=== PATIENT | male | born 1965 | race Caucasian/White ===

== ENCOUNTER 2019-11-21 10:32 | Outpatient (CLI) | payer OTHER, MEDICAID, SELFPAY ==
--- NOTE | ~2019-11-21 | XR_ITS ---
XR_[id number]_CR 11/21/2019 11:24 Indication: Neck stiffness with pain. Procedure: 4 view cervical spine Comparison: No prior studies for comparison. Findings: Normal cervical alignment. There is disc narrowing at C5-6, C6-7 and C7-T1. No prevertebral soft tissue abnormality. Odontoid process within normal limits. Lateral masses normally aligned. The re are carotid atherosclerotic changes. There is moderate multilevel facet and uncinate hypertrophy. Lung apices are normal. Impression: 1: Moderate cervical spondylosis. 2: Carotid atherosclerosis. Consider correlation with ultrasound. Reviewed, dictated and finalized at location A. TH ASSOCIATE Impression: 1: Moderate cervical spondylosis. 2: Carotid atherosclerosis. Consider correlation with ultrasound.
--- NOTE | ~2019-11-21 | XR_ITS ---
XR shoulder RT min 2V 11/21/2019 11:25 Indication: Right shoulder pain Procedure: 5 views right shoulder Comparison: No prior studies for comparison. Findings: There are degenerative changes of the acromioclavicular joint. No fracture or traumatic mal alignment. Surrounding osseous structures and soft tissues are unremarkable. No foreign bodies. Impression: 1: Acromioclavicular joint osteoarthritis. Reviewed, dictated and finalized at location A. L PARALEGAL Impression: 1: Acromioclavicular joint osteoarthritis.
--- NOTE | ~2019-11-21 | XR_ITS ---
XR lumbar spine 2-3V 11/21/2019 11:24 Indication: Low back pain Procedure: 4 views lumbar spine Comparison: No prior studies for comparison. Findings: There is disc narrowing at L4-5 and L5-S1. There are facet hypertrophic changes of the mid and lower lumbar spine. There is grade 1 degenerative spondylolisthesis at L4-5. No acute fracture or traumatic malalignment. There is minimal dextrocurvature of the lumbar spine. Pedicles intact. Impression: 1: Moderate lumbar spondylosis with grade 1 degenerative spondylolisthesis at L4-5. Reviewed, dictated and finalized at location A. BOARD DEVELOPER Impression: 1: Moderate lumbar spondylosis with grade 1 degenerative spondylolisthesis at L 4-5.
== END 2019-11-21 10:33 | disposition home or self-care (01) ==
PROVIDERS: PCP Family Medicine; Visit Provider Family Medicine
DX: R59.0 Localized enlarged lymph nodes (principal)
CPT/HCPCS: 72040; 72100; 73030

== ENCOUNTER 2019-11-22 09:33 | Outpatient (CLI) | payer OTHER, MEDICAID, SELFPAY ==
--- NOTE | ~2019-11-22 | US_ITS ---
EXAMINATION: US soft tissue chest DATE: 11/22/2019 10:09 INDICATION: Localized swelling at the right neck and supraclavicular region. TECHNIQUE: Multiple grayscale and Doppler ultrasound images of the right supraclavicular region, the right neck and contralateral left neck for comparison. were obtained. COMPARISON: None FINDINGS: There are a few normal-sized lymph nodes in the right supraclavicular region and relatively symmetric at the left and right neck. For reference the largest lymph node at the right neck measures 6 mm in maximal short axis diameter with prominent central fatty hilum. No other abnormal masses, fluid colle ctions or pathologically enlarged lymph nodes identified. IMPRESSION: 1. Normal study. No abnormal masses, fluid collections or pathologically enlarged lymph nodes at the region of concern. Reviewed, dictated and finalized at location A. T MACHINE OPERATOR IMPRESSION: 1. Normal study. No abnormal masses, fluid collections or pathologically enlarg ed lymph nodes at the region of concern.
== END 2019-11-22 09:34 | disposition home or self-care (01) ==
LOC: CHSIMG 09:38
PROVIDERS: PCP Family Medicine; Visit Provider Family Medicine
DX: R59.0 Localized enlarged lymph nodes (principal)
CPT/HCPCS: 76604

== ENCOUNTER 2021-03-13 10:30 | Outpatient (CLI) | payer OTHER, SELFPAY ==
--- NOTE | ~2021-03-13 | XR_ITS ---
XR chest 2V 03/13/2021 11:12 Indication: Chest pain Procedure: PA and lateral views of the chest Comparison: 02/05/2019 Findings: Heart size normal. No focal air space disease, pulmonary edema, pleural effusion or suspect ed pneumothorax. No acute osseous abnormality. There are multiple mild wedge compression deformities of the midthoracic spine, likely chronic. Impression: 1: No acute cardiopulmonary disease. Reviewed, dictated and finalized at location B. Impression: 1: No acute cardiopulmonary disease.
--- NOTE | 2021-03-13 10:35 | ECG_ITS ---
Measurements Intervals [place] Rate: 140 P: VT: 0 QRS: -12 QRSD: 93 T: 23 QT: 299 QTc: 457 Interpretive Statements ATRIAL FLUTTER/TACHYCARDIA WITH RAPID VENTRICULAR RESPONSE DELAYED PRECORDIAL R/S TRANSITION BASELINE ARTIFACT- I, AVL, AVF ABNORMAL ECG Electronically Signed On 03-13-2021 13:58:24 CDT by Colby Lantigua D.O.
[2021-03-13 10:48] LABS: Basophils Absolute Auto 0.01 K/mm3 (0.00-0.10); Basophils Percent Auto 0.2 % (0.0-1.0); Eosinophils Absolute Auto 0.08 K/mm3 (0.02-0.50); Eosinophils Percent Auto 1.3 % (1.0-6.0); Hematocrit 46.7 % (40.0-54.0); Hemoglobin 16.1 g/dL (14.0-18.0); Immature Granulocyte Absolute 0.03 K/mm3 (0.00-0.00); Immature Granulocyte Percent A 0.5 % (0.0-0.0); Lymphocytes Absolute Auto 1.49 K/mm3 (1.10-4.50); Lymphocytes Percent Auto 25.1 % (18.0-42.0); Mean Corpuscular HGB Conc 34.5 g/dL (32.0-36.0); Mean Corpuscular Hemoglobin 31.2 pg (27.0-31.0); Mean Corpuscular Volume 90.5 fL (78.0-102.0); Mean Platelet Volume 10.3 fl (8.7-11.0); Monocytes Absolute Auto 0.46 K/mm3 (0.10-0.90); Monocytes Percent Auto 7.8 % (2.0-11.0); Neutrophils Absolute Auto 3.9 K/mm3 (1.7-7.2); Neutrophils Percent Auto 65.1 % (50.0-70.0); Platelet Count Result 224 K/mm3 (150-420); Red Blood Count 5.16 M/mm3 (4.70-6.10); Red Cell Distribution Width 12.3 % (11.6-14.4); White Blood Count 5.9 K/mm3 (4.8-10.8)
[2021-03-13 11:29] LABS: Alanine Aminotransferase 54 U/L (16-63); Alkaline Phosphatase 76 U/L (46-116); Anion Gap 14 mmol/L (8-16); Aspartate Amino Transferase 38 U/L (15-37); Bilirubin,Total 0.5 mg/dL (0.00-1.00); Blood Urea Nitrogen 16 mg/dL (7-18); Calcium 9.6 mg/dL (8.5-10.1); Carbon Dioxide 25 mmol/L (21-32); Chloride 96 mmol/L (98-108); Estimated Glomerular Filt Rate > 60; Glucose 203 mg/dL (70-99); Osmolality Calculated 287 mOsm/kg (285-295); Potassium 4.1 mmol/L (3.5-5.1); Sodium 135 mmol/L (136-145); Total Protein 7.8 g/dL (6.4-8.2); Uric Acid 5.8 mg/dL (3.5-7.2)
[2021-03-13 11:30] LABS: Thyroid Stimulating Hormone Reflex 3.14 u/IU/mL (0.36-3.74)
== END 2021-03-13 10:31 | disposition home or self-care (01) ==
LOC: CHSLAB 10:35
PROVIDERS: PCP Family Medicine; Visit Provider Family Medicine
DX: R00.9 Unspecified abnormalities of heart beat (principal); I10 Essential (primary) hypertension; R06.00 Dyspnea, unspecified; M10.9 Gout, unspecified
CPT/HCPCS: 36415; 71046; 80053; 84443; 84550; 85025; 93005

== ENCOUNTER 2021-03-13 11:14 | Inpatient (IN) | payer OTHER, SELFPAY ==
[2021-03-13] VITALS (37 sets, daily range): BP systolic 92–118; BP diastolic 57–96; PULSE 83–146; RESP 7–21; TEMP 35.5–36.9; O2SAT 93–97; BMI 46.1
[2021-03-13 11:54] LABS: Basophils Absolute Auto 0.03 K/mm3 (0.00-0.10); Basophils Percent Auto 0.5 % (0.0-1.0); Eosinophils Absolute Auto 0.08 K/mm3 (0.02-0.50); Eosinophils Percent Auto 1.4 % (1.0-6.0); Hemoglobin 15.3 g/dL (14.0-18.0); Immature Granulocyte Absolute 0.02 K/mm3 (0.00-0.00); Immature Granulocyte Percent A 0.3 % (0.0-0.0); Lymphocytes Absolute Auto 1.37 K/mm3 (1.10-4.50); Lymphocytes Percent Auto 23.9 % (18.0-42.0); Mean Corpuscular Hemoglobin 30.7 pg (27.0-31.0); Mean Corpuscular Volume 90.4 fL (78.0-102.0); Mean Platelet Volume 10.5 fl (8.7-11.0); Monocytes Absolute Auto 0.49 K/mm3 (0.10-0.90); Monocytes Percent Auto 8.5 % (2.0-11.0); Neutrophils Absolute Auto 3.8 K/mm3 (1.7-7.2); Neutrophils Percent Auto 65.4 % (50.0-70.0); Platelet Count Result 218 K/mm3 (150-420); Red Blood Count 4.98 M/mm3 (4.70-6.10); Red Cell Distribution Width 12.2 % (11.6-14.4); White Blood Count 5.7 K/mm3 (4.8-10.8)
[2021-03-13 12:08] LABS: Partial Thromboplastin Time 23.9 SEC (23.90-30.70); Prothrombin Time 10.9 Seconds (9.50-12.10)
[2021-03-13] MEDS: dilTIAZem HCl INJ 25 MG/5 ML VIAL 20 MG IV PUSH (12:12)
[2021-03-13 12:24] LABS: Alanine Aminotransferase 49 U/L (16-63); Albumin Level 3.7 g/dL (3.4-5.0); Alkaline Phosphatase 68 U/L (46-116); Anion Gap 12 mmol/L (8-16); Aspartate Amino Transferase 33 U/L (15-37); Bilirubin,Total 0.5 mg/dL (0.00-1.00); Blood Urea Nitrogen 16 mg/dL (7-18); Calcium 9.3 mg/dL (8.5-10.1); Carbon Dioxide 25 mmol/L (21-32); Chloride 97 mmol/L (98-108); Estimated CRCL calculation 100 ml/min; Estimated Glomerular Filt Rate > 60; Glucose 189 mg/dL (70-99); Lipase 121 U/L (73-393); Osmolality Calculated 284 mOsm/kg (285-295); Potassium 3.7 mmol/L (3.5-5.1); Sodium 134 mmol/L (136-145); Total Protein 7.6 g/dL (6.4-8.2)
[2021-03-13 12:25] LABS: Troponin I 11.7 ng/L (0.00-60.4)
[2021-03-13 12:26] LABS: NT Pro B Type Natriuretic Pept 151 pg/mL (0-125)
--- NOTE | 2021-03-13 12:38 | ECG_ITS ---
Measurements Intervals [place] Rate: 107 P: MT: 0 QRS: -3 QRSD: 99 T: 31 QT: 345 QTc: 462 Interpretive Statements ATRIAL FLUTTER/TACHYCARDIA WITH RAPID VENTRICULAR RESPONSE LOW QRS VOLTAGE IN PRECORDIAL LEADS BORDERLINE R WAVE PROGRESSION, ANTERIOR LEADS ABNORMAL ECG Electronically Signed On 03-13-2021 13:59:28 CDT by Colby Lantigua D.O.
--- NOTE | 2021-03-13 13:30 | ED.ARRPALP ---
HPI - Arrhythmia/Palpitations General Chief Complaint: Arrhythmia/Palpitations Stated Complaint: sent over from Cardio Source: patient Mode of arrival: ambulatory Limitations: no limitations History of Present Illness HPI narrative: this is a 56-year-old gentleman that presents from his doctor's office after his doctor ordered an EKG finding the patient in atrial fibrillation with a with a rapid ventricular response some with a heart rate in the 140s. The patient states that he has been having some discomfort in his chest and neck over the last month but attributed it to may be a viral infection/COVID. Was seen in his cares office today complaining of similar symptoms and EKG blood work were related from his primary care physician's office to our ER, had a chest x-ray performed which was normal. The patient presents with some no chest pain but had some mild shortness of breath with palpitations has a history of NV with Street 3 stents placed approximately 3 years ago. complaint: rapid heart beat Onset (ago): month(s) Duration: intermittent Severity: moderate Context: occurred during rest Related Data Allergies Allergy/AdvReac Type Severity Reaction Status Date / Time No Known Drug Allergies Allergy Unknown . Verified 03/13/21 10:06 Review of Systems Review of Systems: All systems reviewed & are unremarkable except as noted in HPI and below PMFSH Past Medical History Medical History Dyspnea Gout Hypertension Low testosterone Lyme disease Overweight Tachycardia Vitamin D deficiency Surgical History Surgical History No history of previous surgery Family History Family History Father Hypertension Mother Hypertension Social History Social History Smoking status: Never smoker Tobacco type: cigarettes Alcohol intake: never Substance use: never Substance use type: does not use Additional living arrangements comments: . 1 Child. Exam Const: General: no acute distress Orientation/consciousness: patient oriented x3 HENMT: Head: normal to inspection Eyes: Conjunctivae: conjunctivae normal Pupils: Equal, round and reactive pupils present Neck: Neck: normal visual inspection and no lymphadenopathy Chest: Chest palpation & inspection: normal inspection of the chest Resp: Effort & Inspection: normal respiratory effort Cardio: Rate: tachycardic Rhythm: abnormal rhythm GI: Auscultation: normal bowel sounds Back/Spine/Pelvis: Back: no CVA tenderness Skin: General skin exam: normal color Rashes: no rashes Neuro: General: patient oriented x3 Extrem: General: normal to inspection and no pedal edema Psych: Mental Status: mental status grossly normal Course Course Emergency Course: patient feels more comfortable after receiving rate control with some IV bolus of Cardizem and currently on Cardizem infusion heart rate has come down to about 100s, currently receiving a Cardizem infusion at a rate of 10 per hour. Currently no chest pain no shortness of breath patient feels comfortable. Vital Signs Vital signs: Vital Signs Pulse Rate 144 H 03/13/21 11:27 Respiratory Rate 15 03/13/21 11:27 Pulse Oximetry 96 03/13/21 11:27 Temperature 35.5 C L 03/13/21 11:29 Pulse Rate 138 H 03/13/21 13:22 Respiratory Rate 16 03/13/21 12:55 Blood Pressure 111/77 03/13/21 13:22 Pulse Oximetry 95 03/13/21 12:55 MDM - Arrhythmia/Palpitations Lab Data Result diagrams: 03/13/21 11:39 03/13/21 11:39 Labs: Lab Results 03/13/21 03/13/21 03/13/21 Range/Units 11:34 11:39 11:39 WBC 5.7 (4.8-10.8) K/mm3 RBC 4.98 (4.70-6.10) M/mm3 Hgb 15.3 (14.0-18.0) g/dL Hct 45.0 (40.0-54.0) % MCV 90.4 (78.
--- NOTE | 2021-03-13 16:10 | PC.NURSE ---
This nurse spoke with Dr. Alexander about continued tachycardia, HR 130s to 140's. Verbal order to increase Cardizem drip to 15mg/15mg per hour. This nurse explained reason for increasing medication, patient states understanding.
[2021-03-13] MEDS: SODIUM CHLORIDE 0.9% IV 1,000 ML 100 ML IV CONT (17:42)
[2021-03-13 17:57] LABS: Troponin I 13.3 ng/L (0.00-60.4)
[2021-03-13] MEDS: APIXABAN 2.5 MG TABLET 5 MG PO (20:25)
[2021-03-13] MEDS: METOPROLOL TARTRATE 50 MG TAB PO (20:26)
--- NOTE | 2021-03-13 20:28 | PC.NURSE ---
pulse rate has been steady at 108 to 110. cardizem gtt decreased to 5 with administration of meteprolol
[2021-03-13 21:05] LABS: Troponin I 12.8 ng/L (0.00-60.4)
--- NOTE | 2021-03-13 23:11 | PC.NURSE ---
Patient has maintained target range for pulse for 15 minutes. Patient put light on as nurse coming into room. Patient was clammy and breathless. Reported not feeling right VsS as reported . O2 placed at 2 liters for patient comfort. Cardizem gtt stopped per protocol. Dr. Alexander contacted and change reported. Patient appears to be very anxious
[2021-03-14] VITALS (10 sets, daily range): BP systolic 104–133; BP diastolic 59–91; PULSE 89–136; RESP 16–22; TEMP 36.4–36.8; O2SAT 94–98
--- NOTE | 2021-03-14 01:35 | PC.NURSE ---
IV in right AC kept setting down stream occlusion light off. New Iv established in left hand RAC access kept
--- NOTE | 2021-03-14 01:46 | PC.NURSE ---
# 22 gauge catheter started to the left hand.
[2021-03-14] MEDS: ACETAMINOPHEN 325 MG TABLET 650 MG PO (05:06)
[2021-03-14 05:36] LABS: Basophils Absolute Auto 0.02 K/mm3 (0.00-0.10); Basophils Percent Auto 0.4 % (0.0-1.0); Hematocrit 42.4 % (40.0-54.0); Hemoglobin 14.8 g/dL (14.0-18.0); Immature Granulocyte Absolute 0.01 K/mm3 (0.00-0.00); Immature Granulocyte Percent A 0.2 % (0.0-0.0); Lymphocytes Absolute Auto 1.63 K/mm3 (1.10-4.50); Lymphocytes Percent Auto 32.5 % (18.0-42.0); Mean Corpuscular HGB Conc 34.9 g/dL (32.0-36.0); Mean Corpuscular Hemoglobin 31.8 pg (27.0-31.0); Mean Platelet Volume 10.3 fl (8.7-11.0); Monocytes Absolute Auto 0.43 K/mm3 (0.10-0.90); Monocytes Percent Auto 8.6 % (2.0-11.0); Neutrophils Absolute Auto 2.8 K/mm3 (1.7-7.2); Neutrophils Percent Auto 56.3 % (50.0-70.0); Platelet Count Result 193 K/mm3 (150-420); Red Blood Count 4.66 M/mm3 (4.70-6.10); Red Cell Distribution Width 12.5 % (11.6-14.4)
[2021-03-14 05:52] LABS: Alanine Aminotransferase 53 U/L (16-63); Albumin Level 3.5 g/dL (3.4-5.0); Alkaline Phosphatase 64 U/L (46-116); Anion Gap 12 mmol/L (8-16); Aspartate Amino Transferase 41 U/L (15-37); Bilirubin,Total 0.5 mg/dL (0.00-1.00); Blood Urea Nitrogen 16 mg/dL (7-18); Calcium 8.7 mg/dL (8.5-10.1); Carbon Dioxide 26 mmol/L (21-32); Chloride 99 mmol/L (98-108); Estimated CRCL calculation 103 ml/min; Estimated Glomerular Filt Rate > 60; Glucose 166 mg/dL (70-99); Magnesium 1.8 mg/dL (1.8-2.4); Osmolality Calculated 289 mOsm/kg (285-295); Potassium 3.5 mmol/L (3.5-5.1); Sodium 137 mmol/L (136-145)
--- NOTE | 2021-03-14 07:11 | PC.NURSE ---
pt getting Echo performed in room, orders given to give po cardizem when echo completed.
[2021-03-14] MEDS: METOPROLOL TARTRATE 50 MG TAB PO (08:28)
[2021-03-14] MEDS: APIXABAN 2.5 MG TABLET 5 MG PO (08:28)
--- NOTE | 2021-03-14 10:39 | PC.NURSE ---
pt resting in bed, tele monitor on with alarms, no evidence of distress noted at this time.
--- NOTE | 2021-03-14 10:50 | PM.IMHP ---
H&P: HPI History of Present Illness Date/Time: 03/14/21 10:50 Ignore this document Pt needed to be transferred to higher level of care for Unstable Angina. [facility] Past Medical History Medical History (Updated 03/14/21 @ 11:05 by EDGARDO Bryant) Atrial flutter Dyspnea Gout Hypertension Low testosterone Lyme disease Myocardial infarct Overweight Tachycardia Vitamin D deficiency Surgical History Surgical History (Updated 03/14/21 @ 11:01 by EDGARDO Bryant) Stented coronary artery Family History Family History Father Hypertension Mother Hypertension Heart failure Social History Social History Smoking status: Never smoker Tobacco type: cigarettes Alcohol intake: never Substance use: never Substance use type: does not use Additional living arrangements comments: . 1 Child. Gender identity (if verbalized by the patient): Male Spiritual care concerns: No Meds Home Medications and Allergies Home Medications Medication Instructions Recorded Confirmed Type allopurinol 300 mg tablet See Rx Instructions .ROUTE 01/15/21 03/13/21 Rx .COMPLEX #90 tablet amlodipine 10 mg tablet See Rx Instructions .ROUTE 01/15/21 03/13/21 Rx .COMPLEX #90 tablet losartan 100 See Rx Instructions .ROUTE 01/15/21 03/13/21 Rx mg-hydrochlorothiazide 25 mg tablet .COMPLEX #90 tablet metoprolol succinate 50 mg See Rx Instructions .ROUTE 01/15/21 03/13/21 Rx tablet,extended release 24 hr .COMPLEX #90 tablet albuterol sulfate 90 mcg/actuation 1 puff INHALATION Q4H PRN #8 gm 03/07/21 03/13/21 Rx aerosol inhaler apixaban [Eliquis] 5 mg PO Q12HR #60 tablet 03/14/21 Rx diltiazem HCl 240 mg PO QAM #30 cap 03/14/21 Rx Allergies Allergy/AdvReac Type Severity Reaction Status Date / Time No Known Drug Allergies Allergy Unknown . Verified 03/13/21 10:06 Vital Signs Vital Signs - 24 hr 03/13/21 11:27 03/13/21 11:29 03/13/21 11:30 Temperature 96 F L Pulse Rate 144 H 146 H 143 H Respiratory Rate 15 18 7 L Blood Pressure 117/96 H Pulse Oximetry 96 96 93 03/13/21 11:45 03/13/21 12:00 03/13/21 12:15 Temperature Pulse Rate 144 H 143 H 98 Respiratory Rate Blood Pressure Pulse Oximetry 95 93 96 03/13/21 12:17 03/13/21 12:22 03/13/21 12:30 Temperature Pulse Rate 95 93 100 Respiratory Rate Blood Pressure 95/57 L Pulse Oximetry 95 96 03/13/21 12:31 03/13/21 12:40 03/13/21 12:45 Temperature Pulse Rate 111 H 106 H Respiratory Rate 16 Blood Pressure 92/65 L 92/65 L Pulse Oximetry 94 96 03/13/21 12:55 03/13/21 12:56 03/13/21 13:00 Temperature Pulse Rate 113 H 114 H 106 H Respiratory Rate 16 18 12 Blood Pressure 116/83 Pulse Oximetry 95 95 96 03/13/21 13:09 03/13/21 13:12 03/13/21 13:15 Temperature Pulse Rate 118 H 121 H 138 H Respiratory Rate 17 21 H Blood Pressure 116/83 92/69 L 111/77 Pulse Oximetry 97 97 03/13/21 13:16 03/13/21 13:22 03/13/21 13:30 Temperature Pulse Rate 138 H 138 H 119 H Respiratory Rate 18 12 Blood Pressure 111/77 Pulse Oximetry 96 95 03/13/21 13:31 03/13/21 13:45 03/13/21 13:46 Temperature Pulse Rate 124 H 133 H 117 H Respiratory Rate 17 13 11 L Blood Pressure 110/71 117/71 Pulse Oximetry 93 96 96 03/13/21 14:10 03/13/21 16:10 03/13/21 16:45 Temperature 98.1 F 98.4 F Pulse Rate 140 H 137 H 118 H Respiratory Rate 20 18 Blood Pressure 116/89 108/76 118/70 Pulse Oximetry 95 97 03/13/21 17:50 03/13/21 18:30 03/13/21 19:00 Temperature 97.6 F Pulse Rate 142 H 125 H 110 H Respiratory Rate 18 Blood Pressure 117/68 Pulse Oximetry 97 03/13/21 19:29 03/13/21 19:55 03/13/21 20:00 Temperature 98 F Pulse Rate 110 H 110 H 110 H Respiratory Rate 20 Blood Pressure 118/87 118/88 Pulse Oximetry 93 03/13/21 20:26 03/13/21
--- NOTE | 2021-03-14 11:20 | PC.NURSE ---
pt reports not feeling well, neck and upper chest pressure, sob, feeling of something wrong, Seun DIRECTORY COMPILER at bedside, orders received
--- NOTE | 2021-03-14 11:22 | ECG_ITS ---
Measurements Intervals [place] Rate: 102 P: [place]: 0 QRS: -32 QRSD: 138 T: -17 QT: 360 QTc: 470 Interpretive Statements ATRIAL FLUTTER/TACHYCARDIA WITH RAPID VENTRICULAR RESPONSE LEFT AXIS DEVIATION INTRAVENTRICULAR CONDUCTION DELAY POOR R WAVE PROGRESSION, ANTERIOR LEADS BASELINE ARTIFACT- I, II, III, AVR, AVL ABNORMAL ECG Electronically Signed On 03-14-2021 12:33:19 CDT by Colby Lantigua D.O.
--- NOTE | 2021-03-14 11:27 | PC.NURSE ---
Dr Cormier at bedside
--- NOTE | 2021-03-14 11:33 | PC.NURSE ---
Cardiopulmonary and lab in room
[2021-03-14] MEDS: ONDANSETRON INJ 4 MG/2 ML VIAL IV PUSH (11:40)
[2021-03-14] MEDS: MORPHINE SULFATE (*CRX) 2 MG/ML INJ IV PUSH (11:41)
[2021-03-14 11:55] LABS: Prothrombin Time 11.1 Seconds (9.50-12.10)
[2021-03-14 12:05] LABS: NT Pro B Type Natriuretic Pept 73 pg/mL (0-125); Troponin I 10.5 ng/L (0.00-60.4)
--- NOTE | 2021-03-14 12:23 | PM.SD2 ---
Same Day Admit/Disch: HPI History of Present Illness Chief complaint: a flutter with rvr <EDGARDO Bryant - Last Filed: 03/14/21 12:45> Narrative: Alex Cherry is a 56 year old male who is being admitted for Atrial Flutter with RVR. Pt states that for about a month he started having episodes of not feeling well, some SOB, sweating which made him think possible COVID exposure. He was tested and found to be Negative. His symptoms periodically continued but he though they would resolve. He ended up going to his PCP and had an EKG. This showed Atrial Flutter with Rapid Ventricular Response. He was sent to the ER where he was given IV Cardizem. In the middle of the night he had another episode of sweating, SOB, not feeling well and the Cardizem drip was stopped. Pt reported this morning that last nights sensation was similar to episodes prior to coming to the hospital and similar to when he had an MS. Likely not related to the Cardizem drip. He was given PO Cardizem this AM. He denies chest pain with the over night episode. He reports feeling better. Troponin series negative. HR at this time 100. Pt has a past history of a stent placed about 18 years ago, MS in the past, asthma, obesity, gout, and HTN. Pt to be transferred to [facility] for Unstable Angina. Accepted by Dr. Carlos, Pt having chest pressure and some SOB which feels like it did when he had his MS at the age of 38 y/o. Pain is 6/10 and after Morphine 2 mg 4/10 and Pt states he feels more relaxed. Trop Negative, EKG Atrial Flutter with RVR rate 100-110, PT/INR normal, BNP normal. Transferring to higher level of care for Cardiology. <EDGARDO Bryant - Last Filed: 03/14/21 12:45> [facility] Past Medical History Medical History: Medical History (Updated 03/14/21 @ 11:05 by EDGARDO Bryant) Atrial flutter Dyspnea Gout Hypertension Low testosterone Lyme disease Myocardial infarct Overweight Tachycardia Vitamin D deficiency <EDGARDO Bryant - Last Filed: 03/14/21 12:45> Surgical History Surgical History: Surgical History (Updated 03/14/21 @ 11:01 by EDGARDO Bryant) Stented coronary artery <EDGARDO Bryant - Last Filed: 03/14/21 12:45> Family History Family History: Family History Father Hypertension Mother Hypertension Heart failure <EDGARDO Bryant - Last Filed: 03/14/21 12:45> Social History Social History: Social History Smoking status: Never smoker Tobacco type: cigarettes Alcohol intake: never Substance use: never Substance use type: does not use Additional living arrangements comments: . 1 Child. Gender identity (if verbalized by the patient): Male Spiritual care concerns: No <EDGARDO Bryant - Last Filed: 03/14/21 12:45> Same Day Admit/Disch: Med Pre-admit Medications Home Medications: Home Medications Medication Instructions Recorded Confirmed Type allopurinol 300 mg tablet See Rx Instructions .ROUTE 01/15/21 03/13/21 Rx .COMPLEX #90 tablet amlodipine 10 mg tablet See Rx Instructions .ROUTE 01/15/21 03/13/21 Rx .COMPLEX #90 tablet losartan 100 See Rx Instructions .ROUTE 01/15/21 03/13/21 Rx mg-hydrochlorothiazide 25 mg tablet .COMPLEX #90 tablet metoprolol succinate 50 mg See Rx Instructions .ROUTE 01/15/21 03/13/21 Rx tablet,extended release 24 hr .COMPLEX #90 tablet albuterol sulfate 90 mcg/actuation 1 puff INHALATION Q4H PRN #8 gm 03/07/21 03/13/21 Rx aerosol inhaler apixaban [Eliquis] 5 mg PO Q12HR #60 tablet 03/14/21 Rx diltiazem HCl 240 mg PO QAM #30 cap 03/14/21 Rx <EDGARDO Bryant - Last Filed: 03/14/21 12:45> Exam Const: General: cooperative, comfortable, no acute distress, well developed, alert, awake and Physically active <EDGARDO Bryant - Last Filed: 03/14/21 12:45>
--- NOTE | 2021-03-14 12:55 | PC.NURSE ---
[facility] contacted about ALS transport, Dispatcher reports they do not have any ALS rigs available in [facility] to transfer patient.
--- NOTE | 2021-03-14 13:45 | ECHO_ITS ---
Patient Info Name: Alex Cherry Age: 56 years : 1965 Gender: Male Ht: 71 in Wt: 330 lbs BSA: 2.81 m2 HR: 113 bpm BP: 109 / 91 mmHg Technical Quality: Poor Exam Date: 03/14/2021 6:43 AM Exam Location: [facility] Patient Status: Inpatient Admit Date: 03/13/2021 Staff Ordering Physician: Jaime Alexander MD Tax Compliance Agent: Queenie Quijano RDCS Attending Provider: Jaime Alexander MD Referring Physician: Catherine ZHOU; Exam Type: CA echo dop color flow w con Study Info Indications I49.9 - Cardiac arrhythmia, unspecified R06.00 - Dyspnea, unspecified Complete two-dimensional, color flow and Doppler transthoracic echocardiogram is performed with contrast to opacify the left ventricle and to improve the deliniation of the left ventricle endocardial borders. Contrast/Agitated Saline Contrast/Ag. Saline: Definity Amount: 9.00 ml Existing IV Access: Yes IV Access Condition: patent with no signs of infiltration New IV Access: Antecubital Space and Left Site Condition: No extravasation Reason for Poor Study: patient body habitus History/Risk Factors Hypertension: Yes Dyslipidemia: No Peripheral Arterial Disease (PAD): No Obesity: Yes Renal Disease: No Coronary Artery Disease (CAD) Yes Diabetes Mellitus: No Tobacco Use: Never Cerebrovascular Disease: No Family History: Coronary Artery Disease Deep Vein Thrombosis (DVT): None Frailty Scale (CSHA): 4: Vulnerable Summary 1. Technically suboptimal study due to poor sonographic images. 2. Left ventricular chamber dimension is normal. 3. Definity contrast administered improved wall motion interpretation. 4. Left ventricular systolic function is normal, estimated at 50-55%. 5. There is moderately increased left ventricular wall thickness. 6. Left ventricular septal wall motion is abnormal with septal motion related to bundle branch block. 7. The left ventricular diastolic function is grade I diastolic dysfunction. 8. E/e' 15 is elevated. 9. Left atrial chamber dimension is mildly enlarged. 10. No pulmonary hypertension, estimated pulmonary arterial systolic pressure is 19 mmHg. Left Ventricle E/e' 15 is elevated. Technically suboptimal study due to poor sonographic images. Definity contrast administered improved wall motion interpretation. Left ventricular chamber dimension is normal. Left ventricular systolic function is normal, estimated at 50-55%. There is moderately increased left ventricular wall thickness. Left ventricular septal wall motion is abnormal with septal motion related to bundle branch block. The left ventricular diastolic function is grade I diastolic dysfunction. Right Ventricle Right ventricular systolic function is normal and with normal TAPSE 2.0 cm.. Right ventricular chamber dimension is normal. Left Atria Left atrial chamber dimension is mildly enlarged. Right Atria Right atrial chamber dimension is normal. Aortic Valve The aortic valve is trileaflet. There is no aortic valve stenosis. There is no aortic valve regurgitation. Pulmonic Valve There is no pulmonic regurgitation. Mitral Valve There is no mitral valve stenosis. There is no mitral valve regurgitation. Tricuspid Valve There is no tricuspid valve regurgitation. No pulmonary hypertension, estimated pulmonary arterial systolic pressure is 19 mmHg. Pericardium/Pleural There is no
--- NOTE | 2021-03-14 13:48 | PC.NURSE ---
Bed number received from [facility] transfer line #[id number] bed 2, Number for report [phone].
--- NOTE | 2021-03-14 15:15 | PC.NURSE ---
pt discharged in stable condition to [facility] via stretcher, belonging sent, pt verbalized understanding of transfer to outside facility.
== END 2021-03-14 15:15 | disposition short-term general hospital (02) | DRG 201 ==
LOC: CHSED 13:35 → CHS2ND 13:45
PROVIDERS: Nurse Practitioner Family; Admitting Provider Emergency Medicine; Emergency Provider Emergency Medicine; PCP Family Medicine; Visit Provider Emergency Medicine
DX: I48.92 Unspecified atrial flutter (principal); I10 Essential (primary) hypertension; I25.2 Old myocardial infarction; E66.3 Overweight; E55.9 Vitamin D deficiency, unspecified; Z95.5 Presence of coronary angioplasty implant and graft; M10.9 Gout, unspecified; I20.0 Unstable angina; Z86.19 Personal history of other infectious and parasitic diseases
CPT/HCPCS: 36415; 71046; 80053; 83690; 83735; 83880; 84443; 84484; 84550; 85025; 85380; 85610; 85730; 93005; 96365; 99285; A9270; C8929; J2270; J2405; J7030

== ENCOUNTER → 2021-03-28 00:53 | Outpatient (CLI) | payer OTHER, SELFPAY ==
[2021-03-29 16:57] LABS: SARS-CoV-2 RNA PCR Negative
== END ==
PROVIDERS: PCP Family Medicine; Visit Provider Specialist
DX: Z01.812 Encounter for preprocedural laboratory examination (principal); Z20.822 Contact with and (suspected) exposure to COVID-19
CPT/HCPCS: C9803; U0003; U0005

== ENCOUNTER 2021-03-31 01:03 | Day surgery (SDC) | payer OTHER, SELFPAY ==
[2021-03-28 13:10] VITALS: BMI 45.3
[2021-03-31] VITALS (15 sets, daily range): BP systolic 129–142; BP diastolic 93–106; PULSE 60–77; RESP 12–20; TEMP 35.9–36.6; O2SAT 96–99; BMI 46.1
[2021-03-31 08:13] LABS: Basophils Percent Auto 0.3 % (0.2-1.2); Eosinophils Absolute Auto 0.1 K/mm3 (0-0.3); Eosinophils Percent Auto 1.9 % (0-4.4); Hemoglobin 14.8 g/dL (14.0-18.0); Immature Granulocyte Absolute 0.03 K/mm3 (0.00-0.031); Immature Granulocyte Percent A 0.5 % (0-0.5); Lymphocytes Absolute Auto 1.51 K/mm3 (0.9-3.2); Lymphocytes Percent Auto 24.4 % (18.3-44.2); Mean Corpuscular HGB Conc 33.6 g/dl (32-36); Mean Corpuscular Hemoglobin 31.3 pg (26-34); Mean Platelet Volume 10.7 fl (7.4-10.4); Monocytes Absolute Auto 0.5 K/mm3 (0.1-0.6); Monocytes Percent Auto 8.1 % (2.6-8.5); Neutrophils Percent Auto 64.8 % (45.5-73.1); Platelet Count Result 172 k/mm3 (150-375); Red Blood Count 4.73 M/mm3 (4.6-6.20); Red Cell Distribution Width 12.5 % (11.5-14.5); White Blood Count 6.2 K/mm3 (4.5-10.0)
[2021-03-31 08:22] LABS: INR 0.9
[2021-03-31 08:23] LABS: Anion Gap 11 mmol/L (8-16); Blood Urea Nitrogen 19 mg/dL (9-20); Calcium 9.6 mg/dL (8.4-10.2); Carbon Dioxide 24 mmol/L (22-30); Chloride 105 mmol/L (98-107); Estimated CRCL calculation 121 ml/min; Estimated Glomerular Filt Rate > 60; Glucose 183 mg/dL (75-110); Potassium 4.3 mmol/L (3.4-5.0); Sodium 140 mmol/L (137-145)
--- NOTE | 2021-03-31 09:28 | ECG_ITS ---
Measurements Intervals [place] Rate: 66 P: 38 ID: 135 QRS: -9 QRSD: 94 T: 40 QT: 405 QTc: 426 Interpretive Statements SINUS RHYTHM BASELINE ARTIFACT- I, II, AVR, AVL, AVF NORMAL ECG Electronically Signed On 03-31-2021 9:44:07 CDT by Colby Lantigua D.O.
--- NOTE | 2021-03-31 09:37 | WPDMODSED ---
Moderate Sedation Note-Pt Data Patient Data Diagnosis: coronary artery disease with previous PCI to LAD and RCA recent admission with atrial flutter at another hospital follow-up angiography recommended at discharge from that facility scheduled for here today Present Complaint: no complaints Procedure to be performed/Plan: left heart catheterization Allergies Allergy/AdvReac Type Severity Reaction Status Date / Time No Known Drug Allergies Allergy Unknown . Verified 03/28/21 13:21 Home Medications Medication Instructions Recorded Confirmed Type albuterol sulfate 90 mcg/actuation 1 puff INHALATION Q4H PRN #8 gm 03/07/21 03/28/21 Rx aerosol inhaler apixaban [Eliquis] 5 mg PO Q12HR #60 tablet 03/14/21 03/28/21 Rx aspirin 81 mg tablet,delayed 81 mg PO DAILY 03/20/21 03/28/21 History release blood sugar diagnostic 03/20/21 History furosemide 40 mg tablet 40 mg PO DAILY tablet 03/20/21 03/28/21 History losartan 100 mg tablet 100 mg PO DAILY 03/20/21 03/28/21 History metformin 500 mg tablet 500 mg PO BID 03/20/21 03/28/21 History metoprolol tartrate 100 mg tablet 100 mg PO BID tablet 03/20/21 03/28/21 History diltiazem HCl 60 mg 60 mg PO BID cap 03/26/21 03/28/21 History capsule,extended release 12 hr allopurinol 300 mg PO DAILY 03/28/21 03/28/21 History Current Medications: Active Medications Sodium Chloride (Normal Saline Iv) 500 mls @ 100 mls/hr IV CONT .Q5H JOSHUA Sedation/Anesthesia: No previous sedation/anesthesia problems (including family history). [facility] Past Medical History Medical History Atrial flutter Dyspnea Gout Hypertension Low testosterone Lyme disease Myocardial infarct Overweight Tachycardia Vitamin D deficiency Surgical History Surgical History Stented coronary artery Family History Family History Father Hypertension Mother Hypertension Heart failure Social History Social History Smoking status: Never smoker Tobacco type: cigarettes Alcohol intake: never Substance use: never Substance use type: does not use Living arrangements: alone Additional living arrangements comments: . 1 Child. Gender identity (if verbalized by the patient): Male Sexual Orientation (if Verbalized by the Patient): Straight or Heterosexual Spiritual care concerns: No Mod Sed Physical Exam Physical Exam Pre Procedural Exam: Normal: Neck, Throat, Airway, Lungs, Heart Size, Heart Rate, Heart Rhythm and Extremities and Variation: Appearance ( obese white male no apparent distress) Hours since solid foods: 12 Hours since liquid intake: 12 Internal Medicine - PN: Obj Da Vital Signs Vital Signs: Vital Signs - 24 hr 03/31/21 08:00 Temperature 35.9 C L Pulse Rate 70 Respiratory Rate 16 Blood Pressure 134/93 H Pulse Oximetry 97 Meds/Results Medications: Active Medications Generic Name Dose Route Start Last Admin Trade Name Freq PRN Reason Stop Dose Admin Sodium Chloride 500 mls @ 100 mls/hr 03/31/21 08:00 Normal Saline Iv IV CONT .Q5H JOSHUA Labs CBC & Chem 7: 03/31/21 08:04 03/31/21 08:04 Labs: Laboratory Results - last 24 hr 03/31/21 03/31/21 03/31/21 08:04 08:04 08:04 WBC 6.2 RBC 4.73 Hgb 14.8 Hct 44.0 MCV 93.0 MCH 31.3 MCHC 33.6 RDW 12.5 Plt Count 172 MPV 10.7 H Immature Gran % (Auto) 0.5 Neut % (Auto) 64.8 Lymph % (Auto) 24.4 [place] % (Auto) 8.1 Eos % (Auto) 1.9 Baso % (Auto) 0.3 Lymph # (Auto) 1.51 [place] # (Auto) 0.5 Eos # (Auto) 0.1 Baso # (Auto) 0.0 Abs Immat Gran (auto) 0.03 Absolute Neuts (auto) 4.0 Absolute Nucleated RBC 0.0 Nucleated RBC % 0.0 PT 13.0 INR 0.9 Sodium 140 Potassium 4.3
--- NOTE | 2021-03-31 10:20 | WPDCARDPROC ---
Cardiac Cath Procedure Note Date of procedure:: 03/31/21 Performing physician:: Jaime Melendez MD Indication:: Coronary artery disease with previous PCI to LAD and RCA recent admission at another hospital with atrial flutter which was electrically cardioverted recommendation for follow-up angiography made at that hospital scheduled for here today Brief clinical history:: this is a 56-year-old man with history of coronary disease remote history of stenting of the proximal LAD and stenting of the RCA 3 years ago. Not having any anginal symptoms. Was hospitalized elsewhere with tachycardia and found to be in atrial flutter with RVR. Patient was cardioverted electrically and restored into sinus rhythm. He was recommended having a follow-up angiogram and that was scheduled for this Hospital today. Anticoagulation with apixaban was stopped several days prior to this procedure. He is not reporting exertional chest pain Procedure Procedure performed:: left heart catheterization with left ventriculography and coronary angiography Sedation/Medication given:: fentanyl 50 mg Versed 2 mg to start time 956 a.m. case end time 1007 a.m. Christiana Mcginnis RN, Trained observer Access site:: right femoral artery Estimated blood loss:: 15 cc Procedure note:: patient was brought to the cardiac catheterization lab in the postabsorptive state the right femoral triangle was prepped and draped in the usual fashion. Anesthesia was given with 1% lidocaine infiltrated locally. Using the modified Seldinger technique a 5 [place] sheath placed into the femoral artery. After this left heart catheterization was carried out. A 5 [place] angled pigtail catheter was used to document left-sided hemodynamics and to injected LV g in the LEAL projection. After this standard 5 [place] FL4 catheter was used to engage and inject the left coronary artery in multiple projections. A 5 [place] JR4 catheter was used to engage and inject the right coronary artery in orthogonal projections. After this the angiogram was done of the femoral artery through the sheath after which it was decided to remove the sheath with direct manual compression in the holding area. Procedure was well tolerated without complications. He left the cardiac catheterization lab with no evidence of a groin hematoma. Findings:: Hemodynamics: Central aortic pressure 126 over the AV to left ventricle 126/15 end-diastolic 18. No gradient on pullback across the aortic valve. Left ventricle: The LV is normal in size the mid anterior wall is hypodynamic the remainder of the LV contracts very well the global ejection fraction appears to be 50% by visual estimation. Angiographically the LV looks unchanged from 2018. Left main coronary artery is nicely patent the LAD is a medium caliber artery extending down to the cardiac apex. The stent visible in the proximal LAD remains nicely patent with no loss of lumen. Distal to this in the LAD at the site of the bifurcation of the major diagonal branch there is mild atherosclerosis which represents no more than about 40% stenosis. Angiographically this does not appear to be flow-limiting and looks unchanged in comparison to 2018. Circumflex is a large caliber vessel giving rise to the marginal branch the circumflex is angiographically free of disease and unchanged compared to 2018 right coronary artery is large in caliber and dominant to the posterior circulation. The stented segment in the 2nd portion of the RCA remains nicely patent there is no loss of lumen there is no other progressive disease in the RCA. The vessel looks unchanged compared to completion of the PCI in 2018. Conclusion:: 1. Coronary artery disease with history of stenting of the LAD in the remote past and stenting of the mid RCA in 2018 with no significant coronary lesions identified today. 2. Modest disease in the LAD distal to the stent angiographically looks unchanged compared
--- NOTE | 2021-03-31 15:55 | SUR.PHASEII ---
Patient up to bathroom, and ambulated to chair. No signs of bleeding or hematoma noted, will continue to monitor.
--- NOTE | 2021-03-31 16:29 | SUR.PHASEII ---
RN went through discharge instructions with the patient. Patient verbalized understanding of discharge instructions. Patient escorted off the unit by wheelchair.
== END 2021-03-31 16:40 | disposition home or self-care (01) ==
PROVIDERS: PCP Family Medicine; Visit Provider Specialist
PROC: 4A023N7 Measurement of Cardiac Sampling and Pressure, Left Heart, Percutaneous Approach (ICD-10-PCS; CPT 93452; principal; 2021-03-31 09:30)
DX: I25.10 Atherosclerotic heart disease of native coronary artery without angina pectoris (principal); Z95.5 Presence of coronary angioplasty implant and graft; Z79.82 Long term (current) use of aspirin; Z79.51 Long term (current) use of inhaled steroids; I48.92 Unspecified atrial flutter; I47.1 Supraventricular tachycardia; M10.9 Gout, unspecified; I10 Essential (primary) hypertension; A69.20 Lyme disease, unspecified; I25.5 Ischemic cardiomyopathy; E55.9 Vitamin D deficiency, unspecified; Z79.01 Long term (current) use of anticoagulants; E66.01 Morbid (severe) obesity due to excess calories; Z68.42 Body mass index [BMI] 45.0-49.9, adult
CPT/HCPCS: 36415; 80048; 85025; 85610; 93005; 93458; C1887; C1894; J0461; J2250; J3010; J7040

== ENCOUNTER 2021-04-08 11:23 | Outpatient (CLI) | payer OTHER, SELFPAY ==
--- NOTE | 2021-04-10 14:09 | WPDPFTINT ---
PFT Procedure Performed PFT Procedure Performed Spirometry with Pre/Post Bronchodilator Plethysmography (Lung Vol) Diffusing Cap (DLCO) Flow Vol Loop PFT Interpretation DOS: 04/08/2021 REQUESTING: Dr Mcmullen REASON FOR TESTING: Asthma PULMONARY FUNCTION TESTS Results are reliable and reproducible. Spirometry: FEV1 84% predicted, normal, 2.97 liters. FVC 89%. The FEV1/FVC ratio is normal. There is no change with bronchodilator administration Lung volumes: Total lung capacity is normal 102%. Residual volume 111%, normal. RV/TLC mildly increased 37%. Airway resistance elevated 180%. Diffusion: DLCO 96% normal. Flow volume loop: Normal, however only one normal loop was produced. IMPRESSION: This full pulmonary function study shows normal spirometry with mild air trapping seen in the increased RV/TLC ratio. There is mild increase in airway resistance and normal diffusion. In the proper clinical setting, this may be compatible with asthma. Lack of response to bronchodilator should not preclude use if clinically indicated. America Judd MD
== END 2021-04-08 11:24 | disposition home or self-care (01) ==
PROVIDERS: PCP Family Medicine; Visit Provider Family Medicine
DX: J45.909 Unspecified asthma, uncomplicated (principal)
CPT/HCPCS: 94060; 94726; 94729

== ENCOUNTER 2021-07-16 08:56 | Outpatient (CLI) | payer OTHER, SELFPAY | END 2021-07-16 08:57 | disposition home or self-care (01) | LOC: CHSIMG 08:57 | PROVIDERS: PCP Family Medicine; Visit Provider Family Medicine | DX: M25.511 Pain in right shoulder (principal); Z53.8 Procedure and treatment not carried out for other reasons | CPT/HCPCS: 99199 ==

== ENCOUNTER 2021-07-20 12:40 | Outpatient (CLI) | payer OTHER, SELFPAY ==
--- NOTE | ~2021-07-20 | MR_ITS ---
EXAMINATION: MR shoulder RT wo con DATE: 07/20/2021 13:29 INDICATION: Right shoulder pain. TECHNIQUE: Magnetic resonance imaging (MRI) of the right shoulder was performed without intravenous c ontrast. Sequences included axial PD-weighted FS FSE, coronal oblique PD-weighted FS FSE and T2-weigh tabby FS FSE, and sagittal oblique T2-weighted FS FSE and T1-weighted FSE. COMPARISON: Right shoulder radiographs 11/21/2019 FINDINGS: Coracoacromial arch: The acromion undersurface is flat in morphology (type I). There is severe acromioclavicular joint ost eoarthritis including inferiorly directed osteophytes. There is moderate subacromial/subdeltoid bursi tis. Rotator cuff: There is moderate supraspinatus and infraspinatus tendinopathy. There is a bursal sided partial-thick ness tear of supraspinatus tendon measuring 5 mm anterior to posterior by 7 mm proximal to distal by 30% tendon thickness. Teres minor tendon is normal. There is severe subscapularis tendinopathy with p artial tear. There is mild fatty atrophy of the subscapularis muscle belly. Biceps tendon and glenoid labrum: There is a complete tear of proximal biceps tendon. There is a tear of the glenoid labrum from 10:00 to 12:00 (SLAP tear). Fluid: There is no glenohumeral joint effusion. Bones/cartilage: There is partial-thickness cartilage loss of glenoid and humeral head. IMPRESSION: 1. Partial-thickness rotator cuff tears involving supraspinatus and subscapularis tendons. 2. Mild glenohumeral joint chondrosis. 3. Complete tear of proximal biceps tendon. 4. Severe acromioclavicular joint osteoarthritis. 5. Moderate subacromial/subdeltoid bursitis. Reviewed, dictated and finalized at location A. IMPRESSION: 1. Partial-thickness rotator cuff tears involving supraspinatus and subscapular is tendons. 2. Mild glenohumeral joint chondrosis. 3. Complete tear of proximal biceps tendon. 4. Severe acromioclavicular joint osteoarthritis. 5. Moderate subacromial/subdeltoid bursitis.
== END 2021-07-20 12:41 | disposition home or self-care (01) ==
PROVIDERS: PCP Family Medicine; Visit Provider Family Medicine
DX: M19.011 Primary osteoarthritis, right shoulder (principal); M75.51 Bursitis of right shoulder; S46.211A Strain of muscle, fascia and tendon of other parts of biceps, right arm, initial encounter; X58.XXXA Exposure to other specified factors, initial encounter
CPT/HCPCS: 73221

== ENCOUNTER 2021-07-25 11:00 | Outpatient (RCR) | payer OTHER, SELFPAY | END 2021-07-25 13:14 | disposition home or self-care (01) | PROVIDERS: PCP Family Medicine; Visit Provider Family Medicine | DX: Z98.61 Coronary angioplasty status (principal) | CPT/HCPCS: 93798 ==

== ENCOUNTER 2021-12-01 15:06 | Outpatient (CLI) | payer OTHER, SELFPAY ==
--- NOTE | ~2021-12-01 | XR_ITS ---
XR chest 2V DATE: 12/01/2021 16:17 INDICATION: Shortness of breath. Congestive heart failure, COPD. TECHNIQUE: PA and lateral views COMPARISON: 03/13/2021 PA and lateral chest FINDINGS: Normal heart size. Is aortic tortuosity. No hilar or mediastinal enlargement. No pulmonary infiltrate or consolidation, pleural effusion or pulmonary vascular congestion or pneumothorax. Diffuse idiopathic skeletal hyperostosis of the thoracic spine. Multilevel degenerative disc disease of the lumbar spine. IMPRESSION: No active cardiopulmonary disease or significant change since 03/13/2021 Reviewed, dictated and finalized at location A. TECH IMPRESSION: No active cardiopulmonary disease or significant change since 2020
--- NOTE | 2021-12-01 15:09 | ECG_ITS ---
Measurements Intervals [place] Rate: 70 P: 46 [place]: 160 QRS: -21 QRSD: 99 T: 42 QT: 390 QTc: 423 Interpretive Statements SINUS RHYTHM BORDERLINE R WAVE PROGRESSION, ANTERIOR LEADS CANNOT RULE OUT SEPTAL INFARCT, AGE INDETERMINATE BASELINE ARTIFACT- I, II, AVR, AVL, AVF, V1 ABNORMAL ECG Electronically Signed On 12-01-2021 15:42:38 [employer] by Colby Lantigua D.O.
[2021-12-01 15:23] LABS: Hematocrit 47.9 % (40.0-54.0); Hemoglobin 16.1 g/dL (14.0-18.0); Mean Corpuscular HGB Conc 33.6 g/dL (32.0-36.0); Mean Corpuscular Hemoglobin 30.7 pg (27.0-31.0); Mean Corpuscular Volume 91.4 fL (78.0-102.0); Mean Platelet Volume 11.3 fl (8.7-11.0); Platelet Count Result 190 K/mm3 (150-420); Red Blood Count 5.24 M/mm3 (4.70-6.10); Red Cell Distribution Width 12.7 % (11.6-14.4); White Blood Count 6.3 K/mm3 (4.8-10.8)
[2021-12-01 16:02] LABS: Alanine Aminotransferase 51 U/L (16-63); Alkaline Phosphatase 82 U/L (46-116); Anion Gap 13 mmol/L (8-16); Aspartate Amino Transferase 34 U/L (15-37); Bilirubin,Total 0.4 mg/dL (0.00-1.00); Blood Urea Nitrogen 18 mg/dL (7-18); Calcium 9.8 mg/dL (8.5-10.1); Carbon Dioxide 25 mmol/L (21-32); Chloride 100 mmol/L (98-108); Estimated Glomerular Filt Rate > 60; Glucose 173 mg/dL (70-99); NT Pro B Type Natriuretic Pept 32 pg/mL (0-125); Osmolality Calculated 291 mOsm/kg (285-295); Potassium 4.5 mmol/L (3.5-5.1); Sodium 138 mmol/L (136-145); Total Protein 7.8 g/dL (6.4-8.2)
== END 2021-12-01 15:07 | disposition home or self-care (01) ==
PROVIDERS: PCP Family Medicine; Visit Provider Family Medicine
DX: I50.30 Unspecified diastolic (congestive) heart failure (principal)
CPT/HCPCS: 36415; 71046; 80053; 83880; 85027; 93005

== ENCOUNTER 2022-02-02 10:06 | Outpatient (CLI) | payer OTHER, SELFPAY ==
--- NOTE | 2022-02-05 08:38 | P.PCNPFT_ITS ---
PFT Procedure Performed PFT Procedure Performed Spirometry with Pre/Post Bronchodilator Plethysmography (Lung Vol) Diffusing Cap (DLCO) Flow Vol Loop PFT Interpretation DOS: 02/02/2022 REQUESTING: Dr. Kale Mcmullen REASON FOR TESTING: Asthma PULMONARY FUNCTION TESTS Results are reliable and reproducible. Spirometry: Pre-bronchodilator FEV1 88%, 3.09L, normal. Pre-bronchodilator FVC 97%, 4.34L, normal. FEV1/FVC ratio 71%, borderline low. WRD40-15% is 54%, 2.04L. After bronchodilator, there is a 10% increase in FEV1 which is not statistically significant, 4% increase in FVC which is nominal, and 43% increase in ZUO11-07% which is consistent with a small airways pattern and good response to bron chodilator. Lung volumes: TLC 97%, normal. RV 97%, normal. RV/TLC normal. FRC 94%, normal. Increased airway resistance. Diffusion: DLCO is 78%, and DLCO/VA 112%. Flow volume loop: Normal. IMPRESSION: Mild obstructive ventilatory impairment which is severe in the small airways, normal lung volumes and diffusion. There is a robust response to bronchodilator in the small airways. This pattern is consistent with asthma. America Judd MD
== END 2022-02-02 10:07 | disposition home or self-care (01) ==
LOC: CHSCARD 10:07
PROVIDERS: PCP Family Medicine; Visit Provider Family Medicine
DX: J45.909 Unspecified asthma, uncomplicated (principal)
CPT/HCPCS: 94060; 94726; 94729

== ENCOUNTER 2022-06-04 13:47 | Outpatient (CLI) | payer OTHER, SELFPAY ==
[2022-06-04 14:37] LABS: SARS-CoV-2 RNA PCR Negative (Negative)
== END 2022-06-04 13:48 | disposition home or self-care (01) ==
LOC: CHSLAB 13:49
PROVIDERS: Internal Medicine Critical Care Medicine; PCP Family Medicine; Visit Provider Family Medicine
DX: Z20.822 Contact with and (suspected) exposure to COVID-19 (principal)
CPT/HCPCS: C9803; U0003; U0005

== ENCOUNTER 2022-06-04 19:48 | Outpatient (CLI) | payer OTHER, SELFPAY ==
--- NOTE | 2022-06-11 16:20 | WPDSLEEPSTUD ---
Sleep Study Date of Study: 06/04/22 Ordering Provider: Kale Mcmullen DO Interpreting Physician: America Judd MD Sleep Study Type: Polysomnogram Height: 1.8 m Weight: 144.242 kg Body Mass Index: 44.3 Neck Circumference (inches): 22 [place]: 17 Reason for Sleep Study Excessive daytime somnolence Sleep History Alex Cherry is a 57-year-old man with excessive daytime sleepiness. He lists hypertension, heart disease and diabetes as medical problem. he is tired around the clock. He occasionally awakens from sleep feeling short of breath. He rarely has heartburn symptoms at night, rarely snores and rarely snores loudly enough that others complain about it. He frequently has trouble sleeping with a cold. He does not wake up gasping for breath at night. He frequently has breathing problems at night observed by others. He rarely sweats excessively at night. He frequently notices his heart pounding or beating irregularly at night. He frequently falls asleep in the day, involuntarily but never while driving. he does not have loss of muscle tone with strong emotion. He frequently has daytime difficulties due to excessive sleepiness. He does not feel paralyzed on waking or falling asleep. He for that is currently retired. He occasionally has vivid dreamlike scenes upon awakening or falling asleep. He does not feel afraid to go to sleep. He rarely has nightmares. He rarely remembers his dreams. He constantly has racing thoughts. He occasionally feels sad or depressed. He frequently has anxiety. He rarely has muscular tension. He rarely notices parts of his body jerking. He rarely kicks at night. He does not have crawling or aching feelings in his legs or any kind of leg pain at night. He does not have morning jaw pain. He does not grind his teeth during sleep. He frequently is bothered by pain during the day, frequently awakened by pain at night and frequently wakes up feeling stiff in the morning. He occasionally wakes up with sore achy muscles. He frequently wakes up with pain in the neck and spine. He has fatigue, insomnia, palpitation and dizziness. Normal bedtime is 11:00 p.m. taking hours fall asleep typically waking 4-5 times at night staying awake on average anywhere between 15 minutes and 2 hours. While awake, he will go to the bathroom, urinated and get a drink of water. He wakes the morning by 7:00 a.m.. His weekend schedule is the same. He takes naps in the afternoon or evening. A short nap is not refreshing. He is drowsy in the morning for 3 hours or longer. Habits: Never smoked tobacco. Does not drink caffeine. Alcohol 3 beers a week. No recreational drugs. [facility] Past Medical History Medical History Atrial flutter Gout Hypertension Low testosterone Lyme disease Myocardial infarct Overweight Surgical History Surgical History Stented coronary artery Family History Family History Father Hypertension Mother Hypertension Heart failure Social History Social History Smoking status: Never smoker Alcohol intake: never Substance use: never Substance use type: does not use Additional living arrangements comments: . 1 Child. Gender identity (if verbalized by the patient): Male Sexual Orientation (if Verbalized by the Patient): Straight or Heterosexual Spiritual care concerns: No Medications Home Medications Medication Instructions Recorded Confirmed Type aspirin 81 mg tablet,delayed 81 mg PO DAILY 03/20/21 05/19/22 History release (Adult Aspirin Regimen) furosemide 40 mg tablet 40 mg PO DAILY 03/20/21 05/19/22 History apixaban 5 mg tablet (Eliquis) 5 mg PO BID 30 days #60 tabs 04/25/21 05/19/22 Rx atorvastatin 40 mg tablet 40 mg PO DAILY #
[2022-06-15 09:19] VITALS: BMI 44.3
== END 2022-06-05 04:27 | disposition home or self-care (01) ==
PROVIDERS: PCP Family Medicine; Visit Provider Family Medicine
DX: G47.33 Obstructive sleep apnea (adult) (pediatric) (principal)
CPT/HCPCS: 95810

== ENCOUNTER 2022-06-29 19:58 | Outpatient (CLI) | payer OTHER, SELFPAY ==
--- NOTE | 2022-07-17 17:59 | WPDSLEEPSTUD ---
Sleep Study Date of Study: 06/29/22 Ordering Provider: Kale Mcmullen DO Interpreting Physician: America Judd MD Sleep Study Type: CPAP Titration Height: 1.8 m Weight: 144.242 kg Body Mass Index: 44.3 Neck Circumference (inches): 21 [place]: 17 Reason for Sleep Study * 06/04/2022 Basic polysomnogram with severe obstructive sleep apnea, AHI is 31.8, desaturation to 81% and moderate snoring. Central apnea-hypopnea index is 2.1. He now presents for a PAP titration. Sleep History Alex Cherry is a 57-year-old man with excessive daytime sleepiness. ? He has hypertension, heart disease and diabetes. He is tired around the clock.? He occasionally awakens from sleep feeling short of breath.? He rarely has heartburn symptoms at night, rarely snores and rarely snores loudly enough that others complain about it.? He frequently has trouble sleeping with a cold.? He does not wake up gasping for breath at night.? He frequently has breathing problems at night observed by others.? He rarely sweats excessively at night.? He frequently notices his heart pounding or beating irregularly at night.? He frequently falls asleep in the day, involuntarily but never while driving.? he does not have loss of muscle tone with strong emotion.? He frequently has daytime difficulties due to excessive sleepiness.? He does not feel paralyzed on waking or falling asleep.? He for that is currently retired.? He occasionally has vivid dreamlike scenes upon awakening or falling asleep.? He does not feel afraid to go to sleep.? He rarely has nightmares.? He rarely remembers his dreams.? He constantly has racing thoughts.? He occasionally feels sad or depressed.? He frequently has anxiety.? He rarely has muscular tension.? He rarely notices parts of his body jerking.? He rarely kicks at night.? He does not have crawling or aching feelings in his legs or any kind of leg pain at night.? He does not have morning jaw pain.? He does not grind his teeth during sleep.? He frequently is bothered by pain during the day, frequently awakened by pain at night and frequently wakes up feeling stiff in the morning.? He occasionally wakes up with sore achy muscles.? He frequently wakes up with pain in the neck and spine.? He has fatigue, insomnia, palpitation and dizziness. Normal bedtime is 11:00 p.m. taking hours fall asleep typically waking 4-5 times at night staying awake on average anywhere between 15 minutes and 2 hours.? While awake, he will go to the bathroom, urinated and get a drink of water.? He wakes the morning by 7:00 a.m..? His weekend schedule is the same.? He takes naps in the afternoon or evening.? A short nap is not refreshing.? He is drowsy in the morning for 3 hours or longer. Habits:? Never smoked tobacco.? Does not drink caffeine.? Alcohol 3 beers a week.? No recreational drugs. [facility] Past Medical History Medical History Atrial flutter Gout Hypertension Low testosterone Lyme disease Myocardial infarct Overweight Surgical History Surgical History Stented coronary artery Family History Family History Father Hypertension Mother Hypertension Heart failure Social History Social History Smoking status: Never smoker Alcohol intake: never Substance use: never Substance use type: does not use Additional living arrangements comments: . 1 Child. Gender identity (if verbalized by the patient): Male Sexual Orientation (if Verbalized by the Patient): Straight or Heterosexual Spiritual care concerns: No Medications Home Medications Medication Instructions Recorded Confirmed Type aspirin 81 mg tablet,delayed 81 mg PO DAILY 03/20/21 05/19/22 History release (Adult Aspirin Regimen) furosemide 40 mg tablet 40 mg PO SAMANTHA
[2022-07-19 19:43] VITALS: BMI 44.3
== END 2022-06-30 04:30 | disposition home or self-care (01) ==
PROVIDERS: PCP Family Medicine; Visit Provider Family Medicine
DX: G47.33 Obstructive sleep apnea (adult) (pediatric) (principal)
CPT/HCPCS: 95811

== ENCOUNTER 2022-10-26 10:18 | Outpatient (RCR) | payer OTHER, SELFPAY ==
--- NOTE | 2022-10-26 11:50 | PTOPEVAL1 ---
Assessment and note entered by Shannon Gabriel DPT Evaluation Information Assessment Status Evaluation Diagnosis cervical radiculopathy Onset 10/20/22 Subjective Information Patient reports neck pain that has been coming and going for the last few years. He reports the last year pain has intensified. He reports pain is worse when he is laying down to sleep on his side and pain relieves with laying on his back. He reports pain starts at the L sides of the cervical spine and radiates to the collar bone and down to the L eblow. He reports difficulty with lifting, moving and looking to the L when driving. He is currently on medication for gout and states his overall pain levels are decreased. Patient is retired. Reported Pain Level Pain Score 3: Self Report Assessment PT Clinical Summary Patient presents to PT with cervical radiculopathy with radiation to the L UE. Mr. Cherry demonstrates decreased cervical ROM, decreased L UE strength and impaired posture limiting his ability to drive, sleep, and perform house hold tasks. He would benefit from skilled PT to address impairments and return to [place]. Plan of Care Interventions Electrical Stimulation,Hot Pack/Cold Pack,Manual Therapy,Mechanical Traction,Neuro Re-education, Patient/Caregiver Educati,Therapeutic Activities, Therapeutic Exercise,Self-Care/Home Management PT Services Indicated Yes Treatment Frequency and 2x weekly for 10 visits Duration These treatments will address the objective and functional deficits as defined above. The patient will be advanced safely and appropriately in order for the patient to progress towards his/her prior level of function. Additional exercises will be introduced and as well as a comprehensive home exercise program upon discharge, if needed, ?to ensure carryover of functional gains achieved in the clinic. This treatment plan has been reviewed and agreement upon by the patient.
--- NOTE | 2022-12-03 12:03 | PTOPDC ---
Assessment and note entered by Selma Jacobson, PT Evaluation Information Assessment Status Discharge Diagnosis Cervical Radiculopathy Onset 10/20/22 Subjective Information Alex reports he is still having the same pain and has not had any improvement. He continues to have pain that radiates to the collar bone and limits his ability to sleep. He has increased pain when he turns his head which leads to difficulty driving. Reported Pain Level Pain Score 7: Self Report Assessment PT Clinical Summary Alex Cherry has completed 10 skilled physical therapy visits for cervical radiculopathy. He is reporting no overall change in symptoms since initiating PT. He objectively demonstrates improvements in cervical AROM and improved left UE strength. He continues to have pain and deficits in left cervical rotation and lateral flexion ROM as well as a positive left spurlings test indicating possible cervical nerve root impingement. He is being discharged to an independent [facility] today and will follow up with his physician regarding ongoing pain and limitations. Plan of Care Interventions Electrical Stimulation,Hot Pack/Cold Pack,Manual Therapy,Mechanical Traction,Patient/Caregiver Educati,Therapeutic Exercise PT Services Indicated No Treatment Frequency and Discharge Duration
== END 2022-12-03 17:57 | disposition home or self-care (01) ==
LOC: CHSPT 10:18
PROVIDERS: PCP Family Medicine; Visit Provider Family Medicine
DX: M54.12 Radiculopathy, cervical region (principal)
CPT/HCPCS: 97012; 97014; 97110; 97140; 97161; G0283

== ENCOUNTER 2022-11-10 10:12 | Outpatient (CLI) | payer OTHER, SELFPAY ==
--- NOTE | 2022-11-13 17:59 | WPDPFTINT ---
PFT Procedure Performed PFT Procedure Performed Spirometry with Pre/Post Bronchodilator Plethysmography (Lung Vol) Diffusing Cap (DLCO) Flow Vol Loop PFT Interpretation DOS: 11/10/2022 REQUESTING: Dr. Kale Mcmullen REASON FOR TESTING: Asthma PULMONARY FUNCTION TESTS Results are reliable and reproducible. Spirometry: Pre-bronchodilator FEV1 is 2.88 L, 123% predicted, normal. Pre bronchodilator FVC is 4.10 L, 138% predicted, supranormal. The FEV1/FVC ratio is 70%, borderline low. The HEQ82-87% is 1.76 L, 72% predicted. After bronchodilator administration there is a 15% increase in the FEV1 which is 3.32 L, 142% predicted, greater than 200 ml. There is a 10% increase in the FVC, 4.51 L, 151% predicted. DSZ60-67% is 72%, nornal, and increases by 38%, post bronchodilator KSD20-60% is 100% predicted. This is a robust response. Lung volumes: Total lung capacity is 135% predicted, 6.19 L, consistent with mild hyperinflation. Residual volume is 2.01 L, 119% predicted, normal. RV/TLC is 32%, normal. Diffusion: DLCO is 29.6, 103% predicted. DLCO/VA 4.54, 116% predicted. Flow volume loop: Normal. IMPRESSION: This study shows borderline mild airflow obstruction, mild hyperinflation which is new, and normal diffusion. The pre-bronchodilator values are higher compared to prior study on 02/02/2022, suggesting improved treatment of lung disease. On the prior study, pre-BD FEV1 was 88%, now 123%. Pre-bronchodilator FVC was 97%, now 128%, with the same FEV1%. OPD45-95% was 43%, now 72%. There is a good response to bronchodilator in the FEV1 and small airways. Diffusion is normal at baseline, 103%, previously 78%. America Judd MD
== END 2022-11-10 10:13 | disposition home or self-care (01) ==
LOC: CHSCARD 10:13
PROVIDERS: PCP Family Medicine; Visit Provider Family Medicine
DX: U09.9 Post COVID-19 condition, unspecified (principal)
CPT/HCPCS: 94060; 94726; 94729

== ENCOUNTER 2022-12-22 15:54 | Outpatient (CLI) | payer OTHER, SELFPAY ==
--- NOTE | ~2022-12-22 | XR_ITS ---
Bilateral Hands Technique: Bilateral PA, oblique, and lateral views, and ball-catcher's view were obtained. Clinical History: Chronic bilateral pain Findings: Comminuted fracture of the left third distal phalanx noted, with questionable intra-articul ar extension but no step-off at the DIP joint articular surface. No other acute fracture or dislocati on seen. There are probable chronic healed fracture deformities of the right fourth and fifth metacar pal necks. Joint spaces are preserved. There is soft tissue swelling at the distal left third digit o f the fracture site. Impression: Comminuted fracture of the left third distal phalanx, with possible intra-articular extension but no step-off. Probable chronic healed fractures of the right fourth and fifth metacarpals. Reviewed, dictated and finalized at location . Impression: Comminuted fracture of the left third distal phalanx, with possible intra-artic ular extension but no step-off. Probable chronic healed fractures of the right fourth and fifth metacarpals.
[2022-12-22 16:37] LABS: CRP < 0.5 mg/dL (0.0-0.9)
[2022-12-22 17:27] LABS: Erythrocyte Sedimentation Rate 5 mm/hr (0-20)
[2022-12-26 21:14] LABS: ANA Cascade Screen Negative (Negative)
== END 2022-12-22 15:55 | disposition home or self-care (01) ==
LOC: CHSLAB 15:56
PROVIDERS: PCP Family Medicine; Visit Provider Family Medicine
DX: S62.92XA Unspecified fracture of left hand, initial encounter for closed fracture (principal); M79.642 Pain in left hand; M79.641 Pain in right hand
CPT/HCPCS: 36415; 73130; 85652; 86038; 86140; 86430

== ENCOUNTER 2022-12-25 08:51 | Outpatient (CLI) | payer OTHER, SELFPAY ==
--- NOTE | ~2022-12-25 | XR_ITS ---
Cervical Spine: AP, lateral, open-mouth views Clinical History: Pain Findings: No acute fracture identified. Minimal grade 1 anterolisthesis of C4 over C5 noted, and of C 5 over C6. There is advanced degenerative disc narrowing at C5-C6 and C6-C7. There is advanced facet arthropathy at C3-C4, C4-C5, and C5-C6. Pre-vertebral soft tissues are unremarkable. Impression: Moderate to advanced degenerative spondylosis, as above. Grade 1 anterolisthesis of C4 over C5, and of C5 over C6. Reviewed, dictated and finalized at location M. Impression: Moderate to advanced degenerative spondylosis, as above. Grade 1 anterolisthesis of C4 over C5, and of C5 over C6.
== END 2022-12-25 08:52 | disposition home or self-care (01) ==
LOC: CHSIMG 08:54
PROVIDERS: PCP Family Medicine; Visit Provider Family Medicine
DX: M54.12 Radiculopathy, cervical region (principal); M43.02 Spondylolysis, cervical region
CPT/HCPCS: 72040

== ENCOUNTER 2024-02-11 11:40 | Outpatient (CLI) | payer MEDICARE, MEDICAID, SELFPAY ==
[2024-02-11 12:07] LABS: Basophils Absolute Auto 0.03 K/mm3 (0.00-0.10); Basophils Percent Auto 0.4 % (0.0-1.0); Eosinophils Percent Auto 2.8 % (1.0-6.0); Hematocrit 47.9 % (40.0-54.0); Hemoglobin 16.4 g/dL (14.0-18.0); Immature Granulocyte Absolute 0.01 K/mm3 (0.00-0.00); Immature Granulocyte Percent A 0.1 % (0.0-0.0); Lymphocytes Absolute Auto 1.63 K/mm3 (1.10-4.50); Lymphocytes Percent Auto 22.8 % (18.0-42.0); Mean Corpuscular HGB Conc 34.2 g/dL (32-36); Mean Corpuscular Hemoglobin 32.1 pg (27.0-31.0); Mean Corpuscular Volume 93.7 fL (78.0-102.0); Mean Platelet Volume 10.7 fl (8.7-11.0); Monocytes Absolute Auto 0.51 K/mm3 (0.10-0.90); Monocytes Percent Auto 7.1 % (2.0-11.0); Neutrophils Absolute Auto 4.77 K/mm3 (1.70-7.20); Neutrophils Percent Auto 66.8 % (50.0-70.0); Platelet Count Result 185 K/mm3 (150-420); Red Blood Count 5.11 M/mm3 (4.70-6.10); Red Cell Distribution Width 13.2 % (11.6-14.4); White Blood Count 7.2 K/mm3 (4.8-10.8)
[2024-02-11 12:16] LABS: Hemoglobin A1C 6.2 % (<5.7)
[2024-02-11 12:33] LABS: Alanine Aminotransferase 31 U/L (16-63); Albumin Level 3.8 g/dL (3.4-5.0); Alkaline Phosphatase 69 U/L (46-116); Anion Gap 11 mmol/L (4-12); Aspartate Amino Transferase 19 U/L (15-37); Bilirubin,Total 0.7 mg/dL (0.00-1.00); Blood Urea Nitrogen 18 mg/dL (7-18); Calcium 9.2 mg/dL (8.5-10.1); Carbon Dioxide 27 mmol/L (21-32); Chloride 102 mmol/L (98-108); Cholesterol 188 mg/dL (0-200); Estimated Glomerular Filt Rate > 60; Glucose 147 mg/dL (70-99); HDL Direct 43 mg/dL (40-60); LDL Cholesterol Calculated 118 mg/dL (<130); Osmolality Calculated 294 mOsm/kg (285-295); Potassium 4.3 mmol/L (3.5-5.1); Sodium 140 mmol/L (136-145); Total Protein 7.3 g/dL (6.4-8.2); Triglycerides 136 mg/dL (0-150); Uric Acid 5.5 mg/dL (3.5-7.2)
== END 2024-02-11 11:41 | disposition home or self-care (01) ==
LOC: CHSLAB 11:44
PROVIDERS: PCP Family Medicine; Visit Provider Family Medicine
DX: M10.9 Gout, unspecified (principal); E11.9 Type 2 diabetes mellitus without complications; I50.30 Unspecified diastolic (congestive) heart failure
CPT/HCPCS: 36415; 80053; 80061; 83036; 84550; 85025

== ENCOUNTER 2024-08-04 11:16 | Outpatient (CLI) | payer MEDICARE, SELFPAY ==
[2024-08-04 11:36] LABS: Basophils Absolute Auto 0.02 K/mm3 (0.00-0.10); Basophils Percent Auto 0.3 % (0.0-1.0); Eosinophils Absolute Auto 0.15 K/mm3 (0.02-0.50); Eosinophils Percent Auto 2.1 % (1.0-6.0); Hematocrit 48.1 % (40.0-54.0); Hemoglobin 16.5 g/dL (14.0-18.0); Immature Granulocyte Absolute 0.02 K/mm3 (0.00-0.00); Immature Granulocyte Percent A 0.3 % (0.0-0.0); Lymphocytes Absolute Auto 1.81 K/mm3 (1.10-4.50); Lymphocytes Percent Auto 25.3 % (18.0-42.0); Mean Corpuscular HGB Conc 34.3 g/dL (32-36); Mean Corpuscular Hemoglobin 31.6 pg (27.0-31.0); Mean Corpuscular Volume 92.1 fL (78.0-102.0); Mean Platelet Volume 10.5 fl (8.7-11.0); Monocytes Absolute Auto 0.54 K/mm3 (0.10-0.90); Monocytes Percent Auto 7.6 % (2.0-11.0); Neutrophils Absolute Auto 4.61 K/mm3 (1.70-7.20); Neutrophils Percent Auto 64.4 % (50.0-70.0); Platelet Count Result 170 K/mm3 (150-420); Red Blood Count 5.22 M/mm3 (4.70-6.10); Red Cell Distribution Width 12.1 % (11.6-14.4); White Blood Count 7.2 K/mm3 (4.8-10.8)
[2024-08-04 12:59] LABS: Alanine Aminotransferase 36 U/L (16-63); Albumin Level 3.7 g/dL (3.4-5.0); Alkaline Phosphatase 82 U/L (46-116); Anion Gap 10 mmol/L (4-12); Aspartate Amino Transferase 15 U/L (15-37); Bilirubin,Total 0.6 mg/dL (0.00-1.00); Blood Urea Nitrogen 13 mg/dL (7-18); Calcium 9.2 mg/dL (8.5-10.1); Carbon Dioxide 28 mmol/L (21-32); Chloride 101 mmol/L (98-108); Estimated Glomerular Filt Rate > 60; Glucose 152 mg/dL (70-99); Osmolality Calculated 291 mOsm/kg (285-295); Potassium 4.5 mmol/L (3.5-5.1); Sodium 139 mmol/L (136-145); Total Protein 7.3 g/dL (6.4-8.2)
[2024-08-04 13:03] LABS: Thyroid Stimulating Hormone Reflex 2.47 u/IU/mL (0.36-3.74)
== END 2024-08-04 11:17 | disposition home or self-care (01) ==
LOC: CHSLAB 11:18
PROVIDERS: PCP Family Medicine; Visit Provider Family Medicine
DX: E03.9 Hypothyroidism, unspecified (principal); I50.30 Unspecified diastolic (congestive) heart failure
CPT/HCPCS: 36415; 80053; 84443; 85025

== ENCOUNTER 2024-10-26 11:38 | Outpatient (CLI) | payer MEDICARE, SELFPAY ==
[2024-10-26 12:19] LABS: Uric Acid 4.4 mg/dL (3.5-7.2)
== END 2024-10-26 11:39 | disposition home or self-care (01) ==
LOC: CHSLAB 11:40
PROVIDERS: PCP Family Medicine; Visit Provider Family Medicine
DX: M10.9 Gout, unspecified (principal)
CPT/HCPCS: 36415; 84550

== ENCOUNTER 2024-12-04 08:48 | Outpatient (CLI) | payer MEDICARE, MEDICAID, SELFPAY | END 2024-12-04 08:49 | disposition home or self-care (01) | LOC: CHSIMG 08:54 | PROVIDERS: PCP Family Medicine | DX: I63.89 Other cerebral infarction (principal); I65.23 Occlusion and stenosis of bilateral carotid arteries | CPT/HCPCS: 93880 ==

== ENCOUNTER 2025-07-09 16:38 | Outpatient (CLI) | payer MEDICARE, SELFPAY ==
--- OUTSIDE RECORDS SUMMARY | 2025-07-09 16:40 | XMS_ITS | Clinical Summary ---
Author Organization [facility] [address] Address [address] [place] [address] Care Team Providers Care Handbag Stitcher Name Role Phone Kale Mcmullen DO Primary Care Provider Justin Phillips MD Unavailable Allergies No known active allergies Medications allopurinol (ZYLOPRIM) 300 mg tablet take 1 tablet by oral route every day 0 0 09/01/20 16 Active aspirin 81 mg tablet take 1 tablet by oral route every day 0 0 01/15/20 17 Active metoprolol (LOPRESSOR) 100 mg tablet Take 1 tablet (100 mg total) by mouth 2 (two) times a day 60 tablet 03/17/20 21 Active losartan (COZAAR) 100 mg tablet Take 1 tablet (100 mg total) by mouth daily 30 tablet 03/18/20 21 Active Contour Next Test Strips strip Use as directed up to two times a day. 100 each 1 03/17/20 21 Active alcohol swabs (Alcohol Wipes) pads, medicated Use as directed. 100 each 03/17/20 21 Active OneTouch Verio test strips strip Use as directed up to four times a day. 100 each 1 03/18/20 21 Active blood glucose strip-disp meter kit Use as directed. 1 kit 03/18/20 21 Active albuterol HFA (PROVENTIL HFA,VENTOLIN HFA,PROAIR HFA) 90 mcg/actuation inhaler INHALE 1 PUFF BY MOUTH EVERY 4 HOURS NEEDED FOR SHORTNESS OF BREATH FOR WHEEZING 03/13/[address] (VOLTAREN) 75 mg EC tablet Take 1 tablet (75 mg total) by mouth 2 (two) times a day as needed for pain 07/14/20 Active Ozempic 0.25 mg or 0.5 mg (2 mg/3 mL) pen injector injection INJECT 0.5MG SUBCUTANEOUSLY ONCE WEEKLY FOR 4 WEEKS. 08/21/20 Active MAGNESIUM GLYCINATE ORAL Take by mouth A ctive atorvastatin (LIPITOR) 80 mg tablet Take 1 tablet (80 mg total) by mouth daily 90 tablet 3 08/24/20 24 025 Active isosorbide mononitrate ER (IMDUR) 30 mg 24 hr tablet Take 1 tablet (30 mg total) by mouth daily 30 tablet 11 09/01/20 24 025 Active apixaban (ELIQUIS) 5 mg tabletIndication s:atrial fibrillation Take 1 tablet (5 mg total) by mouth every 12 (twelve) hours 60 tablet 06/19/20 25 025 Active apixaban (ELIQUIS) 5 mg tabletIndication s:atrial fibrillation Take 1 tablet (5 mg total) by mouth every 12 (twelve) hours 60 tablet 11 08/24/20 24 025 Discontin ued(Reord er) Active Problems Problem Noted Date Diagnosed Date Other thrombophilia 08/24/2024 DIONICIO on CPAP 08/04/2022 History of 2019 novel coronavirus disease (COVID -19) 05/01/2022 Overview (08/04/2022): First episode was mild, in early 2020. Second episode was more severe, in Fall 2020, resulting in intermediate accountant WEST. Mixed diabetic hyperlipidemi a associated with type 2 diabetes mellitus 06/16/2021 Medication side effects 06/16/2021 Chronic anticoagulation 06/16/2021 Nonischemic cardiomyopathy 06/16/2021 Chest pain 03/14/2021 Paroxysmal atrial flutter 03/14/2021 Presence of stent in coronary artery 11/07/2018 Dizziness 07/13/2018 Morbid obesity with BMI of 45.0-49.9, adult 05/05 Chronic fatigue 05/31/2018 Noncompliance 05/31/2018 S/P coronary artery stent placement 05/31/2018 WEST (dyspnea on exertion) 05/31/2018 History of myocardial infarction 01/14/2017 Overview (02/26/2017): H/O acute myocardial infarction Hypertension associated with diabetes 01/14/2017 Overview (02/26/2017): HTN (hypertension), benign Coronary artery disease 01/14/2017 Overview (02/26/2017): Coronary artery disease involving port lions coronary artery of port lions heart without angina pectoris History of placement of stent for coronary arter y disease 01/14/2017 Overview (02/26/2017): S/P coronary artery stent placement Preoperative state 01/14/2017 Overview (02/26/2017): Preoperative cardiovascular examination Body mass index 40+ - severely obese 01/14/2017 Overview (02/26/2017): Morbid obesity with BMI of 45.0-49.9, adult Newly diagnosed diabetes Resolved Problems Problem Noted Date Diagnosed Date Resolved Date COVID 08/04/2021 08/04/2022 Dyslipidemia 05/31/2018 09/29/2021 Encounters Date Type Department Care Team Description 06/14/2025 Telephone [facility] [address] [place] [phone] Justin Phillips MD 05/29/2025 8:15 AM CDT Office Visit [facility] [address] [place] [phone] Justin Phillips MD Mixed diabetic hyperlipidemia associated with type 2 diabetes mellitus (HCC) (Primary Dx) from Last 3 Months Surgical History Surgery Date Site/Laterality Comments APPENDECTOMY Appendectomy Medical History Medical History Date Comments Chronic coronary artery disease Coronary artery disease Hx Other Medical essential (prim derek) hypertension; Comments: TYW 09/01/2016 - Hx Other Medical Gout; Comments: TYW 09/01/2016 - Hx Other Medical S/P Coronary Ar jimi Stent Placement; Comments: TYW 09/01/2016 - History of 2019 novel ingram virus disease (COVID-19) 05/01/2022 Family History Medical History Relation Name Comments Other Father Alive and well; Other Mother Surgical Compli cation; Cause of : Surgical Complication Hypertension Other 1 Family history of Hypertension; Heart disease Other 2 Family history of Heart disease; Relation Name Status Comments Father Alive Mother Other 1 Other 2 Social History Tobacco Use Types Packs/Day Years Used Date Smoking Tobacco: Never Smokeless Tobacco: Never Tobacco Cessation:Counseling Given: Not Answered Sex and Gender Information Value Date Recorded Sex Assigned at Not on file 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 Gender Identity Not on file Sexual Orientation Not on file Obstetrics History Last Filed Vital Signs Vital Sign Reading Time Taken Comments Blood Pressure 140/98 05/29/2025 8:33 AM CDT Pulse 66 05/29/2025 8:33 AM CDT Temperature 36.3 C (97.4 F) 03/17/2021 8:00 AM CDT Respiratory Rate 20 05/29/2025 8:33 AM CDT Oxygen Saturation 98% 05/29/2025 8:33 AM CDT Inhaled Oxygen Concentration - - Weight 139.7 kg (308 lb) 05/29/2025 8:33 AM CDT Height 177.8 cm (5' 10) 05/29/2025 8:33 AM CDT Body Mass Index 44.19 05/29/2025 8:33 AM CDT Plan of Treatment Health Maintenance Due Date Last Done Comments Albumin Creatinine Ratio, Urine 1966 Colon Cancer Screening-Colonoscopy 1966 Depression Screening 1966 Hepatitis C Screening 1966 Dilated Eye Exam 1966 Foot Exam 1966 DTaP/Tdap/Td Vaccine (1 - Tdap) 1977 Hepatitis B Screening 02/28/1984 Regular Well Visit/Exam 18-64 02/28/1984 Pneumococcal vaccine <65 (1 of 2 - PCV) 1985 Zoster Vaccine (1 of 2) 02/28/2016 Prostate Cancer Screening-PSA 06/24/2018 06/24/2016 Hemoglobin A1C 09/13/2021 03/14/2021 eGFR 03/17/2022 03/17/2021, 03/04, 03/14/2021 Influenza Vaccine (#1) 2025 Lipid Panel 05/29/2026 05/29/2025, 08/05, 08/04/2022, Additional history exists Procedures Procedure Name Priority Date/Time Associated Diagnosis Comments POCT LIPID PANEL Routine 05/29/2025 8:28 AM CDT Mixed diabetic hyperlipidemia associated with type 2 diabetes mellitus (HCC) EGFR STAT 03/17/2021 10:44 AM CDT HEMOGLOBIN A1C STAT 03/14/2021 5:43 PM CDT PSA, TOTAL Routine 06/24/2016 10:26 AM CDT from Last 3 Months or Most Recently Relevant to Health Maintenance Results * (ABNORMAL) POCT lipid panel (05/29/2025 8:28 AM CDT) Cholesterol, POC 121 <200 MG/DL HDL, POC 28(A) >=40 mg/dL Triglycerides, POC 181(A) <=149 mg/dL LDL Cholesterol POC 56 <=129 mg/dL Chol/HDL Ratio, POC 2.0 NONE Non-HDL Cholesterol, POC 92 NONE mg/dL Cholesterol Total, POC 121 30 - 199 mg/dL Capillary blood 05/29/2025 8 :28 AM CDT Justin Phillips MD POINT OF CARE TEST ORDERABLES Fi nal Result * eGFR (03/17/2021 10:44 AM CDT) eGFR 96 mL/min/1.7 3 m2 MADALYN GREENE Comment: Interpretive Data Reference Interval Normal >/= 90 mL/min/1.73m2 Mildly decreased* 60 - 89 mL/min/1.73m2 Mildly to moderately decreased 45 - 59 mL/min/1.73m2 Moderately to severely decreased 30 - 44 mL/min/1.73m2 Severely decreased 15 - 29 mL/min/1.73m2 Kidney Failure < 15 mL/min/1.73m2 *Relative to young adult level Estimated glomerular filtration rate is determined by the CKD-EPI equation recommended by the National Kidney Foundation (KDIGO 2012 Clinical Practice Guideline for the Evaluation and Management of Chronic Kidney Disease. Kidney Intnl Suppl Oct 2012;3:1). The CKD-EPI equation should not be used for patients with unstable renal function and has not been validated in children and those over 70. Current interpretive data was last reviewed 2020 Blood specimen (specimen) 03/17/2021 10:44 AM CDT 03/17/2021 11:05 AM CDT [facility] LAB BLOOD ORDERABLES Final Result Performing Organization Address [facility] [address]/[facility] de Phone Number MADALYN GREENE [phone] [address] [facility] [place] [address] * (ABNORMAL) Hemoglobin A1c (03/14/2021 5:43 PM CDT) Pathologist [facility] Hgb A1C 8.6(H) 4.0 - 5.6 % MADALYN Estimated Average Glucose 200 mg/dL MADALYN Comment: The ADA recommends reporting an estimated Average Glucose (eAG) with all Hemoglobin A1c results using the equation derived from a study of 507 normal and diabetic adults. Minority populations were underrepresented and children were not included. (Diabetes Care 31:2308-5790, 2008). The eAG is not equivalent to a fasting glucose. Blood specimen (specimen) 03/14/2021 5:43 PM CDT 03/14/2021 6:44 PM CDT Killian Alexandre Terrance LAB BLOOD ORDERABLES Final Result Performing Organization Address [facility] de Phone Number MADALYN GREENE [address] [address] [facility] [place] [employer] [place] [address] * PSA, total (06/24/2016 10:26 AM CDT) Pathologist [facility] PSA, TOTAL 0.7 < OR = 4.0 ng/mL [facility] HISTORICAL RESULTS Comment: This test was performed using the Siemens chemiluminescent method. Values obtained from different assay methods cannot be used interchangeably. PSA levels, regardless of value, should not be interpreted as absolute evidence of the presence or absence of disease. 06/24/2016 10:2 6 AM CDT 06/25/2016 3:10 AM CDT Narrative [facility] HISTORICAL RESULTS - 06/25/2016 2:55 AM CDT FASTING; FASTING; FASTING FASTING:YES PERFORMING LAB: [place], [facility] [address] [address] [phone] Jonatan Hooker D.O., MPH Dustin Mann MD LAB BLOOD ORDERABLES Fin al Result [facility] HISTORICAL RESULTS from Last 3 Months or Most Recently Relevant to Health Maintenance [facility] AETNA [facility] ADVANTRA Advance Directives For more information, please contact: [phone] * Full Code (Latest Code Status on File) Date Activated Date Inactivated Comments 03/14/2021 5:28 PM 03/17/2021 11:25 PM Care Teams Handbag Stitcher Relationship Specialty Start Date End Date Kale Mcmullen DO [address] [place] [address] PCP - General Family Medicine 03/24/21 Justin Phillips MD [address] [place] [address] Consulting Physician Cardiology 08/30/24
--- OUTSIDE RECORDS SUMMARY | 2025-07-09 16:40 | XMS_ITS | Clinical Summary ---
Author Organization [facility] Address [address] [place] [address] Care Team Providers Care C.O.D. Audit Clerk Name Role Phone Unavailable Primary Care Provider Unavailabl e Social History Tobacco Use Types Packs/Day Years Used Date Smoking Tobacco: Never Assessed Sex and Gender Information Value Date Recorded Sex Assigned at Not on file Legal Sex Male 1:54 AM CDT Gender Identity Not on file Sexual Orientation Not on file Plan of Treatment Health Maintenance Due Date Last Done Comments Colorectal Cancer Screening Colonoscopy (10 Years) 1966 Annual Physical 1969 Hepatitis C 02/28/1984 DTaP, Tdap and Td Vaccines ( 1 - Tdap) 1985 Pneumococcal Vaccine: 50+ Ye ars (1 of 1 - PCV) 02/28/2016 Zoster Vaccines (1 of 2) 02/28/2016 COVID-19 Vaccine (1 - 2023-2 5 season) 2025 Influenza Adult (#1) 2025 Meningococcal B Vaccine Aged Out No l onger eligible based on patient's age to complete this topic Meningococcal Vaccine Aged Out No cele lexie eligible based on patient's age to complete this topic RSV Immunizations Under 20 Months Aged Out No longer eligible based on patient's age to complete this topic Insurance [employer] MEDICAID
--- OUTSIDE RECORDS SUMMARY | 2025-07-09 16:40 | XMS_ITS | Encounter Summary ---
Author Organization [facility] Care Team Providers Care Registered Nurse Step Down Name Role Phone Peyton Remy MD Primary Care Provider [phone] Arsenio Romero MD Unavailable [phone] Peyton Remy MD Primary Care Provider [phone] Kale Mcmullen DO Primary Care Provider Justin Phillips MD Unavailable Encounter Details Date Type Department Care Team (Latest Contact Info) Description 07/01/2016 Orders Only [facility]INCON[facility] ProviderAna MD [address] [place] [id number] Social History Tobacco Use Types Packs/Day Years Used Date Smoking Tobacco: Never Assessed Sex and Gender Information Value Date Recorded Sex Assigned at Not on file 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 Historical Provider [facility]OT[facility] Final Result documented in this encounter Visit Diagnoses Not on filedocumented in this encounter Care Teams Registered Nurse Step Down Relationship Specialty Start Date End Date Peyton Remy MD [address] [place] [address] PCP - General Surgery 05/18/18 03/16/21 Peyton Remy MD [address] [place] [address] PCP - General 03/17/21 03/23/21 Kale Mcmullen DO [address] [place] [address] PCP - General Family Medicine 03/24/21 Arsenio Romero MD [address] [place] [address] Consulting Physician Cardiology 03/17/21 08/29/24 Justni Phillips MD [address] [place] [address] Consulting Physician Cardiology 08/30/24 documented as of this encounter
--- OUTSIDE RECORDS SUMMARY | 2025-07-09 16:40 | XMS_ITS | Encounter Summary ---
Author Organization [facility] Address [address] [place] [address] Care Team Providers Care Seismograph Helper Name Role Phone Unavailable Primary Care Provider Unavailabl e Encounter Details Date Type Department Care Team (Late st Contact Info) Description 03/11/2019 Abstract [facility] CONVERSION [address] [place] [address] , Generic Conversion, Social History Tobacco Use Types Packs/Day Years Used Date Smoking Tobacco: Never Assessed Sex and Gender Information Value Date Recorded Sex Assigned at Not on file Legal Sex Male 1:54 AM CDT Gender Identity Not on file Sexual Orientation Not on file documented as of this encounter Plan of Treatment Not on file documented as of this encounter Visit Diagnoses Not on filedocumented in this encounter
[2025-07-09 17:05] LABS: Hematocrit 47.8 % (40.0-54.0); Hemoglobin 16.2 g/dL (14.0-18.0); Immature Granulocyte Percent A 0.3 % (0.0-0.0); Lymphocytes Absolute Auto 2.06 K/mm3 (1.10-4.50); Mean Corpuscular HGB Conc 33.9 g/dL (32-36); Mean Corpuscular Hemoglobin 30.9 pg (27.0-31.0); Mean Corpuscular Volume 91.2 fL (78.0-102.0); Nucleated Red Blood Cells Absolute Auto 0.00 K/mm3 (0.00-0.00); Nucleated Red Blood Cells Perc 0.0 % (0-0.0); Platelet Count Result 164 K/mm3 (150-420); Red Blood Count 5.24 M/mm3 (4.70-6.10); White Blood Count 6.7 K/mm3 (4.8-10.8)
[2025-07-09 17:21] LABS: Add Urine Microscopic? YES; Appearance Urine Clear (Clear); Glucose Urine UA 3+ (Negative); Leukocyte Esterase Ur Negative LEU/UL (Negative); Nitrate Urine Negative (Negative); Specific Grav Ur 1.025 (1.010-1.020)
[2025-07-09 17:38] LABS: Hemoglobin A1C 9.8 % (<5.7)
[2025-07-09 17:38] LABS: MALB Creatinine Ratio 164.7 mg/g (0-30)
[2025-07-09 18:10] LABS: Alanine Aminotransferase 25 U/L (6-50); Albumin Level 4.6 g/dL (3.5-5.1); Alkaline Phosphatase 56 U/L (38-126); Anion Gap 13 mmol/L (4-12); Aspartate Amino Transferase 24 U/L (17-59); Bilirubin,Total 0.7 mg/dL (0.2-1.3); Blood Urea Nitrogen 15 mg/dL (9-20); Calcium 10.0 mg/dL (8.4-10.2); Carbon Dioxide 22 mmol/L (22-30); Chloride 103 mmol/L (98-107); Cholesterol 126 mg/dL (0-200); Estimated Glomerular Filt Rate > 60; Glucose 249 mg/dL (65-110); HDL Direct 35 mg/dL; Osmolality Calculated 294 mOsm/kg (285-295); Potassium 4.5 mmol/L (3.4-5.0); Sodium 138 mmol/L (137-145); Total Protein 8.6 g/dL (6.3-8.2); Triglycerides 191 mg/dL (<150); Uric Acid 3.3 mg/dL (3.5-8.5)
[2025-07-09 18:41] LABS: Thyroid Stimulating Hormone Reflex 1.690 uIU/mL (0.465-4.68)
[2025-07-11 12:08] LABS: Anti-CCP Ab, IgG/IgA 4 units (0-19)
== END 2025-07-09 16:39 | disposition home or self-care (01) ==
LOC: CHSLAB 16:39
PROVIDERS: PCP Family Medicine; Visit Provider Nurse Practitioner Family
DX: E11.9 Type 2 diabetes mellitus without complications (principal); R82.998 Other abnormal findings in urine; I10 Essential (primary) hypertension; M10.9 Gout, unspecified; R76.89 Other specified abnormal immunological findings in serum
CPT/HCPCS: 36415; 80053; 80061; 81001; 82043; 83036; 84443; 84550; 85025; 86200; 86430